=== PATIENT | male | born 1965 | race Asian ===

== ENCOUNTER 2024-07-03 09:17 | Outpatient (CLI) | payer OTHER, SELFPAY | END 2024-07-03 09:18 | disposition home or self-care (01) | LOC: NFLDREF 07-05 10:56 | PROVIDERS: PCP Family Medicine; Referring Provider Family Medicine; Visit Provider Family Medicine | DX: Z00.00 Encounter for general adult medical examination without abnormal findings (principal); E78.00 Pure hypercholesterolemia, unspecified; E55.9 Vitamin D deficiency, unspecified; Z12.5 Encounter for screening for malignant neoplasm of prostate | CPT/HCPCS: 80053; 80061; 82306; G0103 ==